=== PATIENT | male | born 1940 | race Caucasian/White ===

== ENCOUNTER → 2016-06-03 | Outpatient (CLI) | payer MEDICARE, OTHER | END | disposition home or self-care (01) | LOC: GMAM 16:35 | PROVIDERS: ATTEND Family Medicine | DX: Z12.5 Encounter for screening for malignant neoplasm of prostate (principal) ==

== ENCOUNTER 2016-07-30 20:31 | Emergency (ER) | payer MEDICARE, OTHER ==
--- NOTE | 2016-07-30 20:42 | ED.PDOC ---
History of Present Illness - General Chief Complaint: General Stated Complaint: DIZZINESS Time Seen by Provider: 07/30/16 20:35 Source: patient, family Exam Limitations: no limitations Additional Information: PT C/O ABRUPT ONSET OF DIZZINESS, N/V 1.5 HOURS AGO. VERTGO. - History of Present Illness Severity: moderate Improving Factors: nothing Worsening Factors: other - HEAD MOVEMENT Associated Symptoms: diaphoresis Allergies/Adverse Reactions: Allergies NO KNOWN ALLERGY Allergy (Unverified 06/03/12 20:39) Home Medications: Ambulatory Orders Meclizine HCl 25 mg PO Q6H #20 tab 07/30/16 Promethazine Supp [Phenergan Suppository] 25 mg NE Q4HR PRN #14 sup 07/30/16 Review of Systems - Review of Systems Constitutional: States: diaphoresis. Denies: chills, fever EENTM: States: no symptoms reported Respiratory: Denies: cough, short of breath, wheezing Cardiology: Denies: chest pain, palpitations, syncope Gastrointestinal/Abdominal: States: nausea, vomiting. Denies: abdominal pain, diarrhea Genitourinary: States: no symptoms reported Musculoskeletal: States: no symptoms reported Skin: States: no symptoms reported Neurological: States: headache. Denies: numbness, paresthesia Endocrine: States: no symptoms reported Hematologic/Lymphatic: States: no symptoms reported Past Medical History (General) - Patient Medical History Hx of COPD: Yes Hx Cardiac Disorders: Yes Hx Hypertension: Yes - Social History Hx Tobacco Use: Yes - PAST SMOKER Hx Alcohol Use: No Hx Substance Use: No Family Medical History - Family History Mother Family History: Unknown Physical Exam - Physical Exam General Appearance: No apparent distress, Well Developed, Well Hydrated Eye Exam: bilateral normal Ears, Nose, Throat: hearing grossly normal, normal ENT inspection, normal pharynx Neck: full range of motion, supple Respiratory: lungs clear, no respiratory distress Cardiovascular/Chest: no murmur Gastrointestinal/Abdominal: non tender, soft, no organomegaly Back Exam: normal inspection, no vertebral tenderness Extremity: normal range of motion, normal inspection Neurologic: no motor/sensory deficits, alert, normal mood/affect, oriented x 3 Skin Exam: normal color, warm/dry Lymphatic: no adenopathy Progress - Progress Progress: 07/30/16 22:35 FEELS BETTER. ABLE TO SIT UP WITHOUT DIZZINESS OR VOMITING. 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 Departure - Departure Clinical Impression: PVD (peripheral vascular disease) Acute labyrinthitis Qualifiers: Laterality: bilateral Qualified Code(s): H83.03 - Labyrinthitis, bilateral Time of Disposition: 22:38 Disposition: Discharge to Home or Self Care Condition: Good Departure Forms: ED Discharge - Pt. Copy, Patient Portal Self Enrollment Instructions: DI for Vertigo Referrals: Leonel Gant MD [Primary Care Provider] - 1-2 Weeks Prescriptions: Promethazine Supp [Phenergan Suppository] 25 mg NE Q4HR PRN #14 sup PRN Reason: Vomiting Meclizine HCl 25 mg PO Q6H #20 tab Home Medications: Ambulatory Orders Meclizine HCl 25 mg PO Q6H #20 tab 07/30/16 Promethazine Supp [Phenergan Suppository] 25 mg NE Q4HR PRN #14 sup 07/30/16
[2016-07-30 21:10] VITALS: TEMP 98
[2016-07-30] MEDS ORDERED: MECLIZINE HCL 12.5 MG TAB PO ONE (21:13)
[2016-07-30] MEDS ORDERED: PROMETHAZINE HCL INJ 12.5 MG in SODIUM CHLORIDE 0.9% 50ML 50 ML IVPB ONE (21:13)
[2016-07-30] MEDS ORDERED: SODIUM CHLORIDE 0.9% 50ML 50 ML ONE (21:19)
[2016-07-30] MEDS ORDERED: PROMETHAZINE HCL INJ 25 MG/ML VIAL ONE (21:19)
--- NOTE | 2016-07-30 22:01 | CT ---
PROCEDURE: Head HISTORY: VERTIGO Indication: Same as above Comparison: None Technique: CT of the head was done without intravenous contrast was done in the axial plane only This exam was performed according to our departmental dose-optimization program, which includes automated exposure control, adjustment of the mA and/or KV according to the patient's size and/or use of iterative reconstruction technique. FINDINGS: There is no intracranial hemorrhage, midline shift mass effect or acute focal infarct. 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 There is periventricular and deep white matter low attenuation, most likely related to small vessel white matter ischemic disease. Intracranial vascular calcifications are seen. If clinical concern exists regarding an acute ischemic/vascular pathology being responsible for patient's symptomatology, an MRI of the brain is more sensitive than the current study, in ruling out such a possibility. There is good reid/white matter differentiation. The ventricular system is normal. The mastoid air cells are unremarkable . The paranasal sinuses show changes of chronic sinusitis . There is no visualization of acute fractures involving the calvarium or the skull base. IMPRESSION: There is no acute intracranial abnormality. Age related and chronic involutional changes are seen. Electronically signed by: Tone Nelson MD 07/30/2016 10:01 PM CDT Workstation: [id number]
[2016-07-30 22:59] VITALS: BP 100/52; O2SAT 95
== END 2016-07-30 22:59 | disposition home or self-care (01) ==
LOC: ER 20:31
DX: I73.9 Peripheral vascular disease, unspecified (principal); H83.03 Labyrinthitis, bilateral; Z87.891 Personal history of nicotine dependence; J44.9 Chronic obstructive pulmonary disease, unspecified; I10 Essential (primary) hypertension
CPT/HCPCS: 36415; 70450; 80053; 85025; A4216; J2550

== ENCOUNTER → 2017-07-15 | Outpatient (CLI) | payer MEDICARE, OTHER | LOC: GMAM 14:39 | PROVIDERS: ATTEND Family Medicine | DX: Z12.5 Encounter for screening for malignant neoplasm of prostate (principal) ==

== ENCOUNTER → 2018-07-06 | Outpatient (CLI) | payer MEDICARE, OTHER | LOC: LAB.O 13:12 | PROVIDERS: ATTEND Internal Medicine Interventional Cardiology | DX: E78.5 Hyperlipidemia, unspecified (principal) ==

== ENCOUNTER → 2018-09-13 | Outpatient (CLI) | payer MEDICARE, OTHER | LOC: GMATM 16:48 | PROVIDERS: ATTEND Nurse Practitioner Family | DX: R53.83 Other fatigue (principal); R29.898 Other symptoms and signs involving the musculoskeletal system ==

== ENCOUNTER → 2018-09-28 | Outpatient (CLI) | payer MEDICARE, OTHER | LOC: GMAM 20:04 | PROVIDERS: ATTEND Family Medicine | DX: M79.10 Myalgia, unspecified site (principal) ==

== ENCOUNTER → 2020-01-04 | Outpatient (CLI) | payer MEDICARE, OTHER | LOC: GMAM 15:00 | PROVIDERS: ATTEND Family Medicine | DX: Z12.5 Encounter for screening for malignant neoplasm of prostate (principal); E55.9 Vitamin D deficiency, unspecified; E78.2 Mixed hyperlipidemia; I10 Essential (primary) hypertension | CPT/HCPCS: 82306; G0103 ==